=== PATIENT | female | born 1970 | race Hispanic/Latino ===

== ENCOUNTER 2017-06-05 17:50 | Emergency (ER) | payer BC, OTHER ==
[2017-06-05] MEDS ORDERED: MORPHINE SULFATE 4 MG/1ML SYG ONE ×2 (18:44→19:43)
[2017-06-05] MEDS ORDERED: ONDANSETRON HCL 4 MG/2 ML VIAL ONE (18:44)
[2017-06-05] MEDS ORDERED: IBUPROFEN 400 MG TABLET ONE (21:17)
[2017-06-05] MEDS ORDERED: IBUPROFEN 200 MG TAB ONE (21:18)
[2017-06-05] MEDS ORDERED: HYDROCODONE/ACETAMINOPHEN 10/325 MG TAB ONE (21:18)
== END 2017-06-05 21:53 | disposition home or self-care (01) ==
LOC: EDH 17:50
DX: S52.92XA Unspecified fracture of left forearm, initial encounter for closed fracture (principal); S52.612A Displaced fracture of left ulna styloid process, initial encounter for closed fracture; S42.291A Other displaced fracture of upper end of right humerus, initial encounter for closed fracture; V19.88XA Pedal cyclist (driver) (passenger) injured in other specified transport accidents, initial encounter; Y93.55 Activity, bike riding; Y92.89 Other specified places as the place of occurrence of the external cause; Y99.8 Other external cause status
CPT/HCPCS: 25605; 73030; 73100; 73110; 96374; 96375; 96376; 99284; J2270 ×2; J2405